=== PATIENT | male | born 1955 | race Caucasian/White ===

== ENCOUNTER 2020-01-17 06:29 | Day surgery (SDC) | payer BC ==
[2020-01-17] VITALS (7 sets, daily range): BP systolic 137–161; BP diastolic 87–94
[~2020-01-17] VITALS: Ht 198.1 cm; Wt 162.6 kg
[2020-01-17] MEDS: normal saline 1000ml 1,000 ML IV PRN ×2 (07:20→10:20)
[2020-01-17] MEDS ORDERED: TRAM50TA2 PO (07:28)
[2020-01-17] MEDS ORDERED: DILT-36 PO (07:28)
[2020-01-17] MEDS ORDERED: ALLO100T PO (07:28)
[2020-01-17] MEDS ORDERED: TIZA4CAP PO (07:28)
[2020-01-17] MEDS ORDERED: LIDOcaine 1%/PF 5ML 10 MG/ML VIAL ONE (07:40)
[2020-01-17] MEDS ORDERED: PROP80TA4 PO (07:40)
[2020-01-17] MEDS ORDERED: BENZ-49 PO (07:40)
[2020-01-17] MEDS ORDERED: METF500T PO (07:40)
[2020-01-17] MEDS ORDERED: DIPH-735 PO (07:40)
[2020-01-17] MEDS ORDERED: heparin sodium, porcine/PF 100unit/ml 5ML syringe ONE (07:40)
[2020-01-17] MEDS ORDERED: FLUO20CA39 PO (07:40)
[2020-01-17] MEDS ORDERED: iohexol 300 MG/1 ML 50ml polymer ONE (07:40)
[2020-01-17] MEDS ORDERED: LISI-600 PO (07:40)
[2020-01-17] MEDS ORDERED: LOVA20TA2 PO (07:40)
[2020-01-17] MEDS ORDERED: OMEP40CA13 PO (07:40)
[2020-01-17] MEDS ORDERED: KIRKLAND SLEEP AID PO (07:44)
[2020-01-17] MEDS ORDERED: ASPI-1265 PO (07:44)
[2020-01-17] MEDS ORDERED: MULT-1074 PO (07:44)
[2020-01-17] MEDS ORDERED: CYAN-34 PO (07:44)
[2020-01-17] MEDS ORDERED: ACET-2971 PO (07:44)
[2020-01-17] MEDS ORDERED: CHOL20004 PO (07:45)
[2020-01-17] MEDS ORDERED: glucagon, human recombinant 1mg kit ONE (07:50)
[2020-01-17] MEDS ORDERED: midazolam 2 mg/2 ml injection ONE ×4 (07:51→09:48)
[2020-01-17] MEDS ORDERED: fentaNYL/PF 50MCG/1 ML 2ML syringe ONE ×2 (07:51→09:09)
[2020-01-17 08:08] LABS: BASOPHILS % (AUTO) 0.3 % (0-1); EOSINOPHILS # (AUTO) 0.2 X10'3 (0-0.9); HEMATOCRIT 38.7 % (42.0-52.0); HEMOGLOBIN 12.7 g/dl (14.0-17.9); LYMPHOCYTES # (AUTO) 0.3 X10'3 (1.1-4.8); LYMPHOCYTES % (AUTO) 4.7 % (21-51); MEAN CORPUSCULAR HEMOGLOBIN 28.1 PG (27.0-31.0); MEAN CORPUSCULAR HGB CONC 32.9 g/dL (33.0-36.5); MEAN CORPUSCULAR VOLUME 85.4 FL (78-98); MEAN PLATELET VOLUME 9.2 FL (7.4-10.4); MONOCYTES # (AUTO) 0.5 X10'3 (0-0.9); MONOCYTES % (AUTO) 8.8 % (2-12); NEUTROPHILS # (AUTO) 4.8 X10'3 (1.8-7.7); NEUTROPHILS % (AUTO) 82.2 % (42-75); PLATELET COUNT 184 X10'3 (140-440); RED BLOOD COUNT 4.53 X10'6 (4.70-6.10); RED CELL DISTRIBUTION WIDTH 15.1 % (11.5-14.5); WHITE BLOOD COUNT 5.9 X10'3 (4.5-11.0)
--- NOTE | 2020-01-17 10:21 | NUR ---
PT NS running as ordered. Pt bag was scanned.
== END 2020-01-17 12:07 | disposition home or self-care (01) ==
LOC: SSTAY O 06:29
PROVIDERS: ATTEND Radiology Diagnostic Radiology
DX: C15.5 Malignant neoplasm of lower third of esophagus (principal); Z20.828 Contact with and (suspected) exposure to other viral communicable diseases; Z79.82 Long term (current) use of aspirin; Z79.899 Other long term (current) drug therapy
CPT/HCPCS: 36415; 36561; 49440; 76937; 77001; 82948; 85025; 87635; 99152; 99153; J1610; J1642; J2250; J3010; J7030; Q9967; B4087; C1713; C1729; C1769; C1894